=== PATIENT | male | born 1970 | race Caucasian/White ===

== ENCOUNTER 2017-02-21 10:31 | Emergency (ER) | payer OTHER ==
[~2017-02-21 10:31] MED LIST: ACID RELUX MED; BENTYL20 MG DOB; CIPRO PO; FLOMAX0.4 M1 PO; HYDROCORTISONE15 G3 TP; MEDROL4 MG/DOSE- PO; MOTRIN400 M1; MOTRIN600 MG; MULTI-DAY1 TAB; NORCO 10-325 TA1 TAB PO; NORCO1 TAB 10/3 PO; PERCOCET5/325 PO; PHENERGAN25 M1 DOB; PHENERGAN25 M1 PO; PHENERGAN25 MG PO
[2017-02-21] MEDS ORDERED: ZANTAC (10:41)
== END 2017-02-21 10:56 | disposition home or self-care (01) ==
LOC: SED 10:31
DX: S39.012A Strain of muscle, fascia and tendon of lower back, initial encounter (principal); K21.9 Gastro-esophageal reflux disease without esophagitis; F17.200 Nicotine dependence, unspecified, uncomplicated; Z87.442 Personal history of urinary calculi; Z85.528 Personal history of other malignant neoplasm of kidney; X58.XXXA Exposure to other specified factors, initial encounter; Y93.39 Activity, other involving climbing, rappelling and jumping off
CPT/HCPCS: 99283

== ENCOUNTER 2017-03-15 13:14 | Emergency (ER) | payer OTHER ==
--- NOTE | ~2017-03-15 | CT4 ---
[facility] A Service of [facility] RADIOLOGY TEXT RESULTS PATIENT: BESSY SIMMONS LOCATION: SED : 68 UNIT #: [id number] AGE: [address]: Pavel Shea MD SEX: M ORDER DR: [id number] [address] [address] [id number] E MR#: [id number] #: [id number] NAME: BESSY SIMMONS : 1970 SEX: M STUDY DATE/TIME: 03/15/2017 14:42 UNIT: SED ROOM: STUDY DESCRIPTION: CT Abd and Pelv Wo Cont Attending Physician: Pavel Shea M.D. Ordering Physician: Pavel Shea M.D. MEDICAL IMAGING REPORT This report is preliminary unless electronic signature is present. EXAM CT of abdomen and pelvis without contrast HISTORY Nausea, vomiting, bloody diarrhea starting last night. TECHNIQUE CT images were obtained from the dome of the diaphragm through the symphysis pubis. No oral or intravenous contrast material was administered. This CT exam was performed with one or more of the following radiation dose reduction techniques: automatic exposure control, adjustment of mA and/or kV according to patient size, and iterative reconstruction. FINDINGS The examination is significantly degraded by the lack of intravenous and oral contrast in this patient's history of nausea, vomiting and diarrhea. Images through the lung bases are clear. The patient does have a cirrhotic morphology to the liver. There is a tiny low-attenuation lesion seen at the dome of the liver which has been stable since January of 2016 and is favored to be benign. Spleen appears unremarkable as are the stomach and proximal small bowel, given unenhanced technique. Adrenal glands and pancreas are within normal limits. Gallbladder also appears unremarkable. Patient has postsurgical changes, likely reflecting partial nephrectomy on the right. There is a cyst arising from the inferior pole of the right kidney. Patient does have a stone identified at the left ureteropelvic junction measuring up to about 4 mm in size. No hydronephrosis is identified. The degree of perinephric stranding is certainly is stable when compared to the prior examination. [facility] A Service of [facility] RADIOLOGY TEXT RESULTS PATIENT: BESSY SIMMONS LOCATION: [facility] [place] : [birth year] UNIT #: [id number] AGE: [address]: Pavel Shea MD SEX: M ORDER DR: No additional stones are seen within the left kidney or within the right kidney. There is a punctate hyperdensity seen along the course of the right ureter. The possibility that this reflects a non-obstructing stone is not excluded, although it could also reflect a phlebolith. I do question if this patient has a duplicated collecting system on the right. Urinary bladder appears unremarkable as is the prostate gland. Unopacified GI tract appears unremarkable, including the appendix. There is some atherosclerotic involvement of the abdominal aorta. No free fluid or adenopathy is seen within the abdomen and pelvis. Review of bony windows does not demonstrate any aggressive osseous abnormalities. Patient is noted to have compression deformity of T12 which is new when compared to the prior examination. I think that I can see a fracture line which would suggest that it is relatively acute. Correlation with history and point tenderness is suggested. IMPRESSION 1. This patient has a 4 mm stone which is located at the left ureteropelvic junction. It does not appear to be associated with any obstruction. Adjacent to the distal right ureter, an additional hyperdensity is seen measuring about 4 mm. The possibility that this reflects a non-obstructing stone is also not excluded, especially as it is not seen on the prior study from January 2016. Potentially, this patient may have a duplicated collecting system on the right. Certainly, renal protocol CT would allow for clarification of the exact location of the 4 mm hyperdensity within the right rossy-pelvis. 2. Unopacified GI tract appears unremarkable. 3. Compression deformity noted at T12, new when compared to the prior CT from January 2016. It is age-indeterminate. Correlation with history of point tenderness is suggested. If there is any doubt as to the acuity of this finding, further evaluation with MRI or bone scan is recommended. 4. Cirrhotic morphology to the liver. 5. Postsurgical changes involving the inferior pole of the right kidney. Dictated by... Roxanne Rincon M.D. THIS IS AN ELECTRONICALLY VERIFIED REPORT Roxanne Rincon M.D. at 03/15/2017 4:52 PM AFF/pcl TD: 03/15/2017 16:18 JOB #: [id number] MEDICAL IMAGING REPORT Page 1 of 1
[~2017-03-15 13:14] MED LIST changes: +ZANTAC
[2017-03-15] MEDS ORDERED: PAIN PILL (13:18)
[2017-03-15 13:46] LABS: BASOPHIL# 0.1 X10e3 (0-0.3); BASOPHIL% 0.5 % (0-2.5); EOSINOPHIL# 0.2 X10e3 (0-0.7); EOSINOPHIL% 1.2 % (0.0-7.0); HEMOGLOBIN 18.3 gm/dL (13.0-16.0); LYMPHOCYTE# 3.3 X10e3 (1.0-3.5); LYMPHOCYTE% 22.4 % (17.0-45.0); MEAN CELL VOLUME 86.1 FL (83-96); MEAN CORPUSCULAR HEMOGLOBIN 29.2 PG (28-34); MEAN PLATELET VOLUME 9.7 FL (6.5-11.5); MONOCYTE# 0.7 X10e3 (0-1.0); NEUTROPHIL# 10.6 X10e3 (1.5-7.1); NEUTROPHIL% 70.9 % (40-75); PLATELET COUNT 107 X10e3 (140-420); RED BLOOD COUNT 6.27 X10e (3.90-5.60); RED CELL DISTRIBUTION WIDTH 13.9 % (11.0-15.5); WHITE BLOOD COUNT 14.9 X10e3 (4.0-10.5)
[2017-03-15 13:50] LABS: DIFF IND NO
[2017-03-15 14:14] LABS: ALBUMIN SERUM 4.3 g/dL (3.5-5.0); BILIRUBIN, DIRECT 0.1 mg/dL (0.0-0.2); BILIRUBIN,INDIRECT 0.6 mg/dL (0.0-0.9); BILIRUBIN,TOTAL 0.7 mg/dL (0.2-2.0); BUN/CREATININE RATIO 13.84; CALCIUM SERUM 9.4 mg/dL (8.4-10.2); CREATININE SERUM 1.3 mg/dL (0.6-1.4); POTASSIUM 4.4 mmol/L (3.5-5.1); PROTEIN TOTAL SERUM 8.1 g/dL (6.0-8.3)
[2017-03-15 16:43] LABS: URINE SOURCE CLEAN CATCH
[2017-03-15 16:45] LABS: URINE APPEARANCE CLEAR; URINE BILIRUBIN NEG (NEG); URINE BLOOD 3+ (NEG); URINE COLOR YELLOW; URINE GLUCOSE NEG (NORM); URINE KETONE NEG (NEG); URINE LEUKOCYTE ESTERASE NEG (NEG); URINE NITRATE NEG (NEG); URINE PH 5.5 (5-8); URINE PROTEIN NEG (NEG); URINE SPECIFIC GRAVITY >=1.030 (1.003-1.035); URINE UROBILINOGEN 0.2 MG/DL (NORM)
[2017-03-15 16:46] LABS: MICRO INDICATED? YES
[2017-03-15 16:51] LABS: CULTURE INDICATED? NO; URINE BACTERIA NEG (NEG); URINE RBC 50-100 /[HPF] (0-2); URINE WBC 0-2 /[HPF] (0-5)
== END 2017-03-15 17:58 | disposition home or self-care (01) ==
LOC: SED 13:14
PROVIDERS: Emergency Medicine
DX: N20.1 Calculus of ureter (principal); K21.9 Gastro-esophageal reflux disease without esophagitis; F17.200 Nicotine dependence, unspecified, uncomplicated; Z87.442 Personal history of urinary calculi
CPT/HCPCS: 36415; 74176; 80048; 80076; 81003; 82150; 83605; 83690; 85025; 87040; 96361; 96372; 96374; 99284; J0500; J2405

== ENCOUNTER 2017-03-22 11:12 | Emergency (ER) | payer OTHER ==
[~2017-03-22] VITALS: Ht 170.2 cm; Wt 88.5 kg
--- NOTE | ~2017-03-22 | CT4 ---
[facility] A Service of [facility] RADIOLOGY TEXT RESULTS PATIENT: BESSY SIMMONS LOCATION: SED : [birth year] UNIT #: [id number] AGE: [address]: Diana Daniels MD SEX: M ORDER DR: [id number] [address] [address] [id number] E MR#: [id number] #: [id number] NAME: BESSY SIMMONS : 1970 SEX: M STUDY DATE/TIME: 03/22/2017 12:31 UNIT: SED ROOM: STUDY DESCRIPTION: CT Abd and Pelv Wo Cont Attending Physician: Diana Daniels M.D. Ordering Physician: Diana Daniels M.D. Primary Care Physician: No Primary Care Physician MEDICAL IMAGING REPORT This report is preliminary unless electronic signature is present. EXAM CT abdomen and pelvis without contrast 03/22/2017 1231 hours HISTORY 46-year-old man complaining of left flank pain since last week when a stone was found. Patient underwent lithotripsy procedure with worsening pain over the last 3 days. History of prior kidney cancer. COMPARISON 03/15/2017 CT scan TECHNIQUE Helical noncontrasted images were obtained from the lung bases through the pubic symphysis. Sagittal and coronal reconstructions were performed. Total exam DLP 993 mGy-cm. This CT exam was performed with one or more of the following radiation dose reduction techniques: automatic control, adjustment of mA and/or kV according to patient size, and iterative reconstruction. FINDINGS Images through the lung bases are clear. There is no pleural effusion. The distal esophagus is normal. Noncontrasted images through the abdomen demonstrate a normal appearance to the liver, spleen, pancreas, gallbladder, bile ducts and adrenal glands. The right kidney demonstrates dystrophic calcifications around the inferior aspect of the kidney where patient previously had resection. There is no definite right renal stone or ureteral stone. The ureter is nondilated. Previous calcification seen near or within the distal right ureter on CT 03/15/2017 is no longer seen and this was likely a stone. The left kidney demonstrates no obstruction. The renal pelvis now appears STS. [facility] A Service of [facility] & [facility] RADIOLOGY TEXT RESULTS PATIENT: BESSY SIMMONS [place] [facility] [place] [birth year] UNIT #: [id number] AGE: [address]: Diana Daniels MD SEX: M ORDER DR: normal. Previous stone no longer seen. There is very mild distal left ureterectasis with no definite stones seen. The bladder is normal. Stomach and small bowel are normal. Normal appendix. No colonic wall thickening. There are a few scattered diverticula. Images through the pelvis demonstrate a normal appearance to the bladder. There is a single phlebolith in the lower left pelvis. The rectum is normal. There is stable compression deformity superior endplate of T12. IMPRESSION 1. Previous stone at the left ureteral pelvic junction and in the distal right ureter no longer seen as compared to 03/15/2017. There is mild distal left ureterectasis with no filling defects seen. 2. Dystrophic calcifications at previous surgical site at the inferior pole right kidney unchanged. 3. Compression deformity superior endplate T12 unchanged from 03/15/2017. 4. Normal appendix. Dictated by... Meredith Paige M.D. THIS IS AN ELECTRONICALLY VERIFIED REPORT Meredith Paige M.D. at 03/22/2017 8:27 PM SAM/sridevi TD: 03/22/2017 18:16 JOB #: [id number] MEDICAL IMAGING REPORT Page 1 of 1
[~2017-03-22 11:12] MED LIST changes: +PAIN PILL
[2017-03-22] MEDS ORDERED: ANTIBIOTIC (11:15)
[2017-03-22] MEDS ORDERED: FLOMAX0.4 M1 (11:15)
[2017-03-22 11:28] LABS: URINE SOURCE CLEAN CATCH
[2017-03-22 11:31] LABS: URINE APPEARANCE CLEAR; URINE BILIRUBIN NEG (NEG); URINE BLOOD 3+ (NEG); URINE COLOR YELLOW; URINE GLUCOSE NEG (NORM); URINE KETONE NEG (NEG); URINE LEUKOCYTE ESTERASE NEG (NEG); URINE NITRATE NEG (NEG); URINE PH 6.5 (5-8); URINE PROTEIN NEG (NEG); URINE SPECIFIC GRAVITY 1.015 (1.003-1.035); URINE UROBILINOGEN 0.2 MG/DL (NORM)
[2017-03-22 11:35] LABS: MICRO INDICATED? YES
[2017-03-22 11:41] LABS: AMPHETAMINE NEG (NEG); BARBITURATES NEG (NEG); BENZODIAZEPINES NEG (NEG); COCAINE NEG (NEG); MARIJUANA NEG (NEG); OPIATES POS (NEG); TRICYCLIC ANTIDEPRESSANTS NEG (NEG); U METHADONE NEG (NEG)
[2017-03-22 11:42] LABS: URINE BACTERIA NEG (NEG); URINE RBC 25-50 /[HPF] (0-2); URINE WBC 0-2 /[HPF] (0-5)
[2017-03-22 11:43] LABS: CULTURE INDICATED? NO
== END 2017-03-22 13:45 | disposition home or self-care (01) ==
LOC: SED 11:12
PROVIDERS: Student in an Organized Health Care Education/Training Program
DX: R10.9 Unspecified abdominal pain (principal); Z87.442 Personal history of urinary calculi; F17.200 Nicotine dependence, unspecified, uncomplicated
CPT/HCPCS: 74176; 80307; 81003; 99284